=== PATIENT | male | born 1975 | race Caucasian/White ===

== ENCOUNTER 2024-10-02 11:16 | Emergency (ER) | payer BC, SELFPAY ==
--- NOTE | 2024-10-02 11:20 | ED_ITS ---
<Statement entered by Faith Kang DO - 10/02/24 15:40> I was consulted by the JUVENTINO, and we discussed the complexity of the problems being addressed. I approved the treatment and management plan for this patient's care in the emergency department, thus performing a substantive portion of the medical decision making. Faith Kang DO Discharge Plan Disposition Patient Disposition: Home, Self-Care Condition: Good Referrals Follow up/Referrals: Jay Frederick MD [Primary Care Provider, Medical] - See instructions Activity Restrictions/Add. Instructions Additional Instructions/Restrictions: As we discussed please follow-up with your PCP. I recommend not taking metformin or glipizide with Mounjaro. If you have any persistent new or worsening signs or symptoms please follow-up with PCP return to the ER as needed. Clinical Impressions Clinical Impression: Hypoglycemia Instructions Patient Instructions: DI for Hypoglycemia, DI for Hyperglycemia -- Adult Print Language Print Language: Hungarian Discharge ED Provider: Faith Kang General Adult HPI General Chief complaint: Hyper/Hypoglycemia Stated complaint: Sugar low, 42, Time Seen by Provider: 10/02/24 11:20 History of Present Illness HPI narrative: Patient presents for evaluation of hyperglycemia. Patient is a type II diabetic who wears a Dexcom. He takes all of his medications in the morning including metformin and glipizide and Mounjaro. He is on the 7.5 mg dose of Mounjaro. He was due for his Mounjaro shot today but did not take it. He got up around 530 this morning to go to work had breakfast from [employer]. Around 1130 this afternoon he got notification his blood sugar was in the 60s. Patient did not feel well describing it as shaky however at then dropped into the 40s and then undetectable. His , who is an DATE PITTER, gave him peanut butter Mountain Dew. Telemetry. We then contacted the PCP who told him to not take his second dose of metformin today and to come to the ER for evaluation. Patient currently is asymptomatic denies chest pain fever chills hemoptysis medic easy melena nausea vomit diarrhea. [facility] Disclaimer: The information contained in this section may have been updated after the patient was seen, as this information can be updated by other users. Social History Smoking Status: Never smoker alcohol intake: never current occupational status: employed Travel in the last 8 weeks?: None ROS Obtained: Yes Systems reviewed as appropriate & no additional complaints except as documented Physical Exam General General appearance: alert and in no apparent distress Respiratory Respiratory exam: Present normal lung sounds bilaterally Cardiovascular Cardiovascular exam: Present regular rate Neurological Exam Neurological exam: Present alert and oriented X3 Medical Decision Making Medical Records Medical records reviewed: Yes I reviewed the patient's medical records. Screening: Per USPSTF and CDC recommendations, given the prevalence of disease in our region, it is our hospital?s policy to screen for HIV and viral Hepatitis for all patients aged 18 and over and those with ongoing risk factors. Richard Inquiry Pt receiving controlled substance: No Vital Signs: 10/02/24 11:43 10/02/24 12:23 Temperature 97.7 F 98.0 F Temperature Source Oral Oral Pulse Rate 80 Pulse Rate [Right] 103 H Respiratory Rate 18 18 Blood Pressure 135/78 Blood Pressure [Right Arm] 154/89 H Blood Pressure Mean [Right Arm] 110 Blood Pressure Source Automatic Cuff Blood Pressure Source [Right Arm] Automatic Cuff Blood Pressure Position [Right Arm] Sitting 02 Sat by Pulse Oximetry 99 Oxygen Delivery Method Room Air Room Air Lab Data Lab results reviewed: Yes I reviewed the patient's lab results. Lab Results 10/02/24 : WBC 8.4, RBC 4.79, Hgb 14.7, Hct 42.8, MCV 89.4, MCH 30.7, MCHC 34.3, RDW 12.9, Plt Count 206, MPV 9.3, Neut % (Auto) 59.6, Lymph % (Auto) 28.3, [place] % (Auto) 10.8 H, Eos % (Auto) 0.2, Baso % (Auto) 0.6, Neut # (Auto) 5.0, Lymph # (Auto) 2.4, [place] # (Auto) 0.9, Eos # (Auto) 0.0, Baso # (Auto) 0.1, Sodium 131 L , Potassium 4.1, Chloride 91 L, Carbon Dioxide 26, Anion Gap 18.1 H, BUN 14, Creatinine 0.90, Estimated Creat Clear 106, Estimated GFR 90, Est GFR ( Amer) 109, Glucose 246 H, Hemoglobin A1c 7.5 H, Calcium 9.2, Phosphorus 2.4 L, Magnesium 1.8, Total Bilirubin 0.6, AST 58, ALT 57, Alkaline Phosphatase 99, Total Protein 8.0, Albumin 4.8, Globulin 3.2, Albumin/Globulin Ratio 1.5 10/02/24 Unknown 10/02/24 Unknown Orders (Tests/Meds): ORDERS Category Date Time Status CBC w/Auto Diff [Complete Blood Count Auto Diff] Stat Lab 10/02/24 Completed CMP [Comprehensive Metabolic Panel] Stat Lab 10/02/24 Completed Hemoglobin A1C Stat Lab 10/02/24 Completed Magnesium Stat Lab 10/02/24 Completed Phosphorous Stat Lab 10/02/24 Completed Medical Decision Narrative: In summary patient is a 49-year-old male who presents to the emergency department for evaluation of hyperglycemia. Patient is initially normotensive with a blood pressure 154/89 slightly tachycardic with a heart rate of 103 breathing 18 times minute satting at 99% on room air upon arrival, afebrile at 97.7. Physical exam reveals well-nourished well-developed 49-year-old male who is otherwise no acute distress. Breath sounds clinic bilateral to the bases without adventitious sounds. [place] Coma Score is 15. Abdomen soft nontender no rebound or guarding no rigidity.. Differential diagnosis includes polypharmacy versus electrolyte abnormality etc. Initial workup will be conducted with hematologic labs. Initial interventions were considered however patient is back to baseline although I did consider fluids and possible dextrose drip will defer for now. Initial workup reviewed by me. And his hematologic labs are significant for sodium of 131 gap of 18 and a sugar of 246 currently and remainder of his hematologic labs are nonactionable. Upon repeat evaluation is still feeling normal and back to baseline. Given this patient is appropriate for discharge with close follow-up with his PCP as already scheduled. I would recommend not taking metformin or glipizide until he sees his PCP. Patient verbalized understanding and agreement. Critical Care Critical Care Time Critical Care Time: No
--- NOTE | 2024-10-02 11:23 | PC.NURSE ---
Patients FSBS was 261.
[2024-10-02 11:39] LABS: Hematocrit 42.8 % (42.0-52.0); Hemoglobin 14.7 g/dL (14.1-18.0); Immature Granulocytes % 0.5 %; Mean Corpuscular HGB Conc 34.3 g/dL (31.8-35.4); Mean Corpuscular Hemoglobin 30.7 pg (27.0-31.2); Mean Corpuscular Volume 89.4 fl (80-94); Nucleated Red Blood Cells % 0 %; Platelet Count 206 K/mm3 (142-424); Red Blood Count 4.79 M/mm3 (4.60-6.20); Red Cell Distribution Width-SD 42.3 fL; White Blood Count 8.4 K/mm3 (4.8-10.8)
[2024-10-02 11:43] VITALS: BP 154/89; PULSE 103; RESP 18; TEMP 36.5; O2SAT 99; BMI 25.0
--- OUTSIDE RECORDS SUMMARY | 2024-10-02 11:45 | XMS_ITS | Continuity of Care Document ---
Author Organization [facility] - [facility] & [facility] [place] Address [address] [place] [address] Care Team Providers Care It Infrastructure Specialist Name Role Phone ARLENMADDIE Primary Care Provider SHERRY HAIRSTON Primary Care Provider Assessment No assessment recorded. Plan of Treatment Reminders Order Date Submit Date Provider Last Modified By Organization Details Last Modified Time Details Appointments OV EST 15 025 02:15PM Wyatt Renteria Jr, MD Not available Not available Not available Lab None record ed. Referral None record ed. Procedures None record ed. Surgeries None record ed. Imaging None record ed. Medication Orders None record ed. Patient TargetsNo targets recorded. Patient InstructionsNo instructions recorded. Reason for Referral None Reported. Problems Name Problem SNOMED Code Status Onset Date Resolution Date Notes Provider Name and Address Organization Details Recorded Time Sensorineural hearing loss 60427750 Active 2022 MICHELINE WHITE, AUD [address] [facility], [place], [address] , [place] - [facility] - [place] & [place] 3 14:52:49 Type 2 diabetes mellitus 52648094 Active 2022 Juan Daphnie null, [place] [facility] [place] & [place] 3 11:35:22 Neuropathy due to diabetes mellitus 439023354 Active 2022 Juan Daphnie null, [place] [facility] [place] 3 11:35:47 Essential hypertension 60863451 Active 2022 Juan [place] null, [place] [facility] [place] & [place] 3 11:36:07 Mixed hyperlipidemi a 602202887 Active 2022 Juan [place] null, [facility] - [facility] & [place] 3 11:36:37 Problem Notes None recorded. Procedures Surgical History Date Name Laterality Status Provider Name and Address Organization Details Recorded Time Other completed Roxanna GEIGER - L [facility] & [place] 04/07/2024 09:09:22 Imaging Results None recorded. Procedure Notes None recorded. Medical Equipment None Reported. Allergies Allergen ID Allergen Name Allergen Category Reaction Reaction Severity Criticality Documentation Date Start Date Code Code System Note Provider Name and Address Organization Details Recorded Time 97074 Product containin g penicilli n (product) medicatio n Not available Not available Not available 09/16/2022 88612 8001 SNOMED Juan Dempseyox null, [facility] FARRIS [facility] & [place] 3 11:34:49 Medications Name Sig Start Date Stop Date Status Note LastModified by Organization Details LastModified Time atorvastati n 80 mg tablet 09/16 completed Not Available Not Available Not Available pravastatin 40 mg tablet active Not Available Not Available Not Available famotidine 20 mg tablet active Not Available Not Available Not Available pravastatin 80 mg tablet 09/16 completed Not Available Not Available Not Available ciprofloxac in 0.3 % eye drops instill ONE drop IN THE RIGHT EYE FOUR TIMES DAILY active Not Available Not Available No t Available metformin 1,000 mg tablet active Not Available Not Available Not Available omeprazole 20 mg capsule,del ayed release active Not Available Not Available Not Available montelukast 10 mg tablet active Not Available Not Available Not Available albuterol sulfate HFA 90 mcg/actuati on aerosol inhaler INHALE 2 PUFFS EVERY 6 HOURS NEEDED WHEEZING OR COUGH 09/19 completed Not Available Not Available Not Available fluticasone propionate 50 mcg/actuati on nasal spray,suspe nsion active Not Available Not Available Not Available lisinopril 2.5 mg tablet active Not Available Not Available Not Available rosuvastati n 20 mg tablet 09/19 completed Not Available Not Available Not Available loratadine active Not Available Not Av ailable Not Available Januvia 100 mg tablet 09/16 completed Not Available Not Available Not Available Xiaflex 0.9 mg solution for injection active Not Available Not Available No t Available Jardiance 25 mg tablet active Not Available Not Available Not Available Trulicity 1.5 mg/0.5 mL subcutaneou s pen injector active Not Available Not Available Not Available Trulicity 0.75 mg/0.5 mL subcutaneou s pen injector 09/16 completed Not Available Not Available Not Available Paxlovid 300 mg (150 mg x 2)-100 mg tablets in a dose pack TAKE 3 TABLET BY MOUTH TWICE DAILY FOR 5 DAYS 09/16 completed Not Available Not Available Not Available Mounjaro active Not Available Not Avai lable Not Available Vitals Date Recorded Body height Body mass index (BMI) Body weight Body temperature Provider Name and Address Organization Details Last Updated DateTime 08/09/2024 172.72 cm 27.7 kg/m2 38086.81 g 98.1 [degF] Zack Moraes [facility] & [place] 08/09/2024 11:12:31 Social History Question Answer Notes LastModified by Organizat ion Details LastModified Time Tobacco Smoking Status Never Smoker Roxanna Maxnova madden, [facility] & [place] 04/07/2024 09:09:18 Do You Have An Advance Directive? No Information not available 04/07/2024 Are You Blind Or Do You Have Difficulty Seeing? Yes Information not available 04/07/2024 What Was The Date Of Your Most Recent Tobacco Screening? 09/18/2022 Information not available 04/07/2024 Are You Passively Exposed To Smoke? No Information not available 04/07/2024 Sex: Unknown Functional Status Question Answer Note LastModified by Organizat ion Details LastModified Time Do you use any illicit or recreational drugs? No Information not available 04/07/2024 What is your level of alcohol consumption? Moderate Information not available 04/07/2024 What is your exercise level? None Information not available 04/07/2024 Mental Status Question Answer Note LastModified by Organization D etails LastModified Time Do you feel stressed (tense, restless, nervous, or anxious, or unable to sleep at night)? GC1821-8 Information not available 04/07/2024 Family History Relationship Description Onset Age of this Age Resolved Age Notes LastModified by Organization Details LastModified Time Mother Mother Not available 2024 09:10:41 Father Father Cancer ,DM, Heart Not available 04/07/2024 09:12:14 Medical History Condition Response High Cholesterol Y Diabetes Y Reflux/GERD Y Past Encounters Encounter ID Performer Location Encounter Start Date Encounter Closed Date Diagnosis/Indication Diagnosis SNOMED-CT Code Diagnosis ICD10 Code Diagnosis Note [id number] Wyatt Renteria Jr, MD [facility] [address] [address] 08/09/2024 11:07:58 08/09/2024 11:35:45 Induration penis plastica 7639423 N48.6 48-year-ol d white male with 7 month history of dorsal penile curvature causing pain with erections. Curvature was noted after a traumatic injury when his dog stepped on his genitals. He denies any contusion or bruising at that time. We discussed Peyronie's disease and its natural course and treatment options. We discussed that for the 1st 6 months he has in an active phase where the curvature could get worse. We discussed treatment options such as Xiaflex and plaque excision. Patient would like to proceed with the Xiaflex injections . We will get him preauthori zed. Health Concerns Section Related Observation LastModified by Organization Detai ls LastModified Time None Recorded Concern Status LastModified by Organization Details LastModified Time None Recorded Payers Encounter Date Sequence Insurance Name Policy Number Policy Haley Covered Member ID Haley Member ID Guarantor Name 08/09/2024 1 [place] [id number] Justine Hobbs [id number] Jonatan Hobbs Notes Date Note Type Note Provider Name and Address Organization Details Recorded Time 08/09/2024 text/html Patient is a 48-year-old white male with history of Peyronie's disease. He was seen in March 2024 at which point he had only had 2 month history of the curvature. States that he noted the curvature after his dog had stepped on his genitalia. He denied any traumatic injuries. He states the curvature is about the same and states it is almost 90 dorsally. He has not able to have penetration current curvature. He does state some occasional discomfort with erections. Wyatt Renteria Jr, MD [address] [place] [address], [address], [place], [address], [place] - [facility] - [facility] 08/09/2024 12:36:02
--- OUTSIDE RECORDS SUMMARY | 2024-10-02 11:45 | XMS_ITS | Data Portability ---
Author Organization [facility] - [facility] Address [address] [place] [address] Assessment Encounter Date Assessment Date Assessment LastModified by Organization Details LastModified Time 09/07/2017 09/07/2017 Patient has a history of diabetes, but he is not on insulin. On 08/31/17, his A1c was 8.7. Given his history of diabetes, patient is qualified for only one year. The only restriction is corrective lenses. csuttor Not available 09/07/2017 15:17:36 Plan of Treatment Reminders Order Date Submit Date Provider Last Modified By Organization Details Last Modified Time Details Appointments None record ed. Lab urinal ysis, dipsti ck, auto 018 09/08/19 csuttor Not available 8 15:07:30 Referral None record ed. Procedures None record ed. Surgeries None record ed. Imaging None record ed. Medication Orders None record ed. Patient TargetsNo targets recorded. Patient InstructionsNo instructions recorded. Reason for Referral None Reported. Results Created Date Observation Date Name Description Value Unit Range Abnormal Flag Note LastModifiedBy Organization Detail LastModifiedTime 09/08/19 18 09/07/2017 urina lysis , dipst ick, auto Unknown Analyte Yellow Not Available [facility] [address], [place], [address], 09/07/2017 14:50:54 09/08/19 18 09/07/2017 urina lysis , dipst ick, auto Unknown Analyte Clear Not Available [facility] [address], [place], [address], 09/07/2017 14:50:54 09/08/19 18 09/07/2017 urina lysis , dipst ick, auto Unknown Analyte 1.010 Not Available [facility] [address], [place], [address], 09/07/2017 14:50:54 09/08/19 18 09/07/2017 urina lysis , dipst ick, auto Unknown Analyte 5.5 Not Available [facility] [address] [place] [address], [place], [address], 09/07/2017 14:50:54 09/08/19 18 09/07/2017 urina lysis , dipst ick, auto Unknown Analyte Negati ve Not Available Internal Medicine [address], [place], [address], 09/07/2017 14:50:54 09/08/19 18 09/07/2017 urina lysis , dipst ick, auto Unknown Analyte Negati ve Not Available Internal Medicine [address] [place], [address], 09/07/2017 14:50:54 09/08/19 18 09/07/2017 urina lysis , dipst ick, auto Unknown Analyte Negtiv e Not Available Internal Medicine [address], [place], [address], 09/07/2017 14:50:54 09/08/19 18 09/07/2017 urina lysis , dipst ick, auto Unknown Analyte 250 mg/dl Not Available Internal Medicine [address], [place], [address], 09/07/2017 14:50:54 09/08/19 18 09/07/2017 urina lysis , dipst ick, auto Unknown Analyte 15 mg/dl (Sm) Not Available Internal Medicine [address], [place], [address], 09/07/2017 14:50:54 09/08/19 18 09/07/2017 urina lysis , dipst ick, auto Unknown Analyte Normal Not Available [facility] [place] [id number], [place], [address], 09/07/2017 14:50:54 09/08/19 18 09/07/2017 urina lysis , dipst ick, auto Unknown Analyte Negati ve Not Available Internal Medicine [address], [place], [address], 09/07/2017 14:50:54 09/08/19 18 09/07/2017 urina lysis , dipst ick, auto Unknown Analyte Negati ve Not Available Internal Medicine [address], [place], [address], 09/07/2017 14:50:54 09/08/19 18 09/07/2017 urina lysis , dipst ick, auto Unknown Analyte Automa rob Not Available Internal Medicine [address], [place], [address], 09/07/2017 14:50:54 Result Notes None recorded. Medical Equipment None Reported. Vitals Date Recorded Body height Body mass index (BMI) Body weight Body temperature Heart rate Respiratory rate Oxygen saturation Oxygen saturation in Arterial blood by Pulse oximetry Systolic And Diastolic Provider Name and Address Organization Details Last Updated DateTime 8 172.72 cm 29.6 kg/m2 33124.5 1 g 98.1 [degF] 111 /min 16 /min 98 % 98 % 112/84 mm[Hg] [facility] 14:47:13 Social History None recorded. Functional Status None recorded. Mental Status None recorded. Family History Nothing Reported. Medical History No medical history recorded. Past Encounters Encounter ID Performer Location Encounter Start Date Encounter Closed Date Diagnosis/Indication Diagnosis SNOMED-CT Code Diagnosis ICD10 Code Diagnosis Note [id number] PRINCE RAO MD [facility] [address],[place] [address] 09/07/2017 14:21:43 09/07/2017 15:24:41 Adult health examination 112187097 Z00.00 Health Concerns Section Related Observation LastModified by Organization Detsheng ls LastModified Time None Recorded Concern Status LastModified by Organization Details LastModified Time None Recorded Advance Directives Directive None Recorded Payers Insurance Date Sequence Insurance Name Policy Number Policy Haley Covered Member ID Haley Member ID Guarantor Name 09/02/2017 1 *SELF PAY* Mayito Hobbs Notes Date Note Type Note Provider Name and Address Organization Details Recorded Time 09/07/2017 text/html 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 PRINCE RAO MD [address] [place] [address], [address], [facility] 09/07/2017 16:32:13
[2024-10-02 11:57] LABS: Alanine Aminotransferase 57 U/L (12-78); Albumin Level 4.8 g/dl (3.5-5.0); Albumin/Globulin Ratio 1.5 (1.1-1.8); Alkaline Phosphatase 99 U/L (38-126); Anion Gap 18.1 mEq/L (5-15); Aspartate Amino Transferase 58 U/L (17-59); Bilirubin,Total 0.6 mg/dl (0.2-1.3); Blood Urea Nitrogen 14 mg/dl (9-20); Calcium 9.2 mg/dl (8.4-10.2); Carbon Dioxide 26 mmol/L (22.0-30.0); Chloride 91 mmol/L (98-107); Creatinine Clearance Estimated 106 mL/min (50-200); Creatinine,Serum 0.90 mg/dl (0.66-1.25); Estimated Glomerular Filt Rate 90 ml/min (>60); GFR (African American) 109 ML/MIN (>60); Globulin 3.2 g/dL (1.3-3.2); Glucose 246 mg/dl (74-100); Magnesium 1.8 mg/dl (1.6-2.3); Potassium 4.1 mmoL/L (3.5-5.1); Sodium 131 mmol/L (136-145); Total Protein,Serum 8.0 g/dl (6.3-8.2)
[2024-10-02 12:11] LABS: Hemoglobin A1C 7.5 % (4.0-6.0)
[2024-10-02 12:23] VITALS: BP 135/78; PULSE 80; RESP 18; TEMP 36.7; O2SAT 98
[2024-10-02 12:37] LABS: Phosphorous 2.4 mg/dl (2.5-4.5)
== END 2024-10-02 12:40 | disposition home or self-care (01) ==
PROVIDERS: Physician Assistant; Emergency Provider Emergency Medicine; PCP Pediatrics
DX: E11.649 Type 2 diabetes mellitus with hypoglycemia without coma (principal); E87.1 Hypo-osmolality and hyponatremia; Z79.84 Long term (current) use of oral hypoglycemic drugs
CPT/HCPCS: 80053; 83036; 83735; 84100; 85025; 99283